=== PATIENT | male | born 1990 | race Two or more races ===

== ENCOUNTER 2017-11-21 22:03 | Emergency (ER) | payer BC, OTHER ==
[~2017-11-21] VITALS: Ht 177.8 cm; Wt 95.3 kg
[2017-11-22 01:08] VITALS: BP 147/99
[2017-11-22] MEDS ORDERED: LIDOCAINE 1% HCL (LOCAL ANESTH.) INJ 20ML MDV IJ ONE (01:45)
[2017-11-22] MEDS ORDERED: TRIAMCINOLONE 40MG/ML 1ML VIAL IM ONE (01:45)
[2017-11-22] MEDS ORDERED: LIDOCAINE 1% (LOCAL ANESTH.) PF 5ml SDV ONE (01:50)
== END 2017-11-22 02:34 | disposition home or self-care (01) ==
LOC: ER 22:03
DX: M62.838 Other muscle spasm (principal); M19.90 Unspecified osteoarthritis, unspecified site; G51.0 Bell's palsy
CPT/HCPCS: 20552; 70450; 96372; 99284; J3301